=== PATIENT | female | born 1990 | race American Indian/Alaskan Native ===

== ENCOUNTER 2017-03-05 14:23 | Emergency (ER) | payer OTHER ==
[2017-03-05 14:37] VITALS: BP 151/93
[2017-03-05] MEDS ORDERED: ULTRAM PO ONE (15:08)
--- NOTE | 2017-03-05 16:12 | Cat Scan Report ---
FINAL REPORT EXAM: CT HEAD/BRAIN WO CON HISTORY: head injury TECHNIQUE: CT examination of the head without IV contrast PRIORS: None. FINDINGS: No acute air-fluid level visualized in the included air-filled sinuses. Bone windows demonstrate no acute fracture. The brain is without mass, mass effect, hemorrhage, or acute infarct. There is no extra-axial intracranial bleed, brain bleed, or midline shift. The ventricles and sulci are age-appropriate. IMPRESSION: No acute CVA, intracranial bleed, or brain mass
--- NOTE | 2017-03-05 16:25 | Emergency Department Report ---
ED General Adult HPI - General Chief complaint: Fall Stated complaint: FALL/BODY PAIN Time Seen by Provider: 03/05/17 15:01 Source: patient Mode of arrival: Ambulatory Limitations: No Limitations - History of Present Illness Initial comments: 26-year-old female currently on Coumadin for DVT presents to the ED complaining about headache after fall. She says she slipped and fell backwards, hitting her headache as an object. Denies LOC, nausea vomiting, tinnitus, abnormal behavior, abnormal memory. States that she's been having a pressure-like headache since the fall. Denies taking medication. She has minor aches and pains around her body but nothing major. Severity scale (0 -10): 9 - Related Data Previous Rx's Medication Instructions Recorded Last Taken Type Amoxicillin [Trimox CAP] 500 mg PO TID #21 capsule 09/26/14 Unknown Rx Ranitidine HCl [Zantac] 150 mg PO BID #30 tablet 09/26/14 Unknown Rx diphenhydrAMINE [Benadryl] 50 mg PO Q8HR PRN #30 capsule 09/26/14 Unknown Rx traMADol [Ultram 50 MG tab] 50 mg PO Q6HR PRN #10 tablet 03/05/17 Unknown Rx Allergies Allergy/AdvReac Type Severity Reaction Status Date / Time No Known Allergies Allergy Unverified 09/26/14 15:09 ED Review of Systems ROS: Stated complaint: FALL/BODY PAIN Other details as noted in HPI Constitutional: denies: chills, fever Eyes: denies: eye pain, eye discharge, vision change ENT: denies: ear pain, throat pain Respiratory: denies: cough, shortness of breath, wheezing Cardiovascular: denies: chest pain, palpitations Endocrine: no symptoms reported Gastrointestinal: denies: abdominal pain, nausea, diarrhea Genitourinary: denies: urgency, dysuria, discharge Musculoskeletal: denies: back pain, joint swelling, arthralgia Skin: denies: rash, lesions Neurological: headache. denies: weakness, paresthesias Psychiatric: denies: anxiety, depression Hematological/Lymphatic: denies: easy bleeding, easy bruising ED Past Medical Hx - Past Medical History Previous Medical History?: Yes Additional medical history: DVT from delivery last year - Surgical History Past Surgical History?: Yes Additional Surgical History: [place] filter - Social History Smoking Status: Former Smoker Substance Use Type: Alcohol - Medications Home Medications: Home Medications Medication Instructions Recorded Confirmed Last Taken Type Amoxicillin [Trimox CAP] 500 mg PO TID #21 capsule 09/26/14 Unknown Rx Ranitidine HCl [Zantac] 150 mg PO BID #30 tablet 09/26/14 Unknown Rx diphenhydrAMINE [Benadryl] 50 mg PO Q8HR PRN #30 capsule 09/26/14 Unknown Rx traMADol [Ultram 50 MG tab] 50 mg PO Q6HR PRN #10 tablet 03/05/17 Unknown Rx ED Physical Exam - General Limitations: No Limitations General appearance: alert, in no apparent distress - Head Head exam: Present: atraumatic, normocephalic - Eye Eye exam: Present: normal appearance - ENT ENT exam: Present: mucous membranes moist - Neck Neck exam: Present: normal inspection - Respiratory Respiratory exam: Present: normal lung sounds bilaterally. Absent: respiratory distress - Cardiovascular Cardiovascular Exam: Present: regular rate, normal rhythm. Absent: systolic murmur, diastolic murmur, rubs, gallop - GI/Abdominal GI/Abdominal exam: Present: soft, normal bowel sounds - Extremities Exam Extremities exam: Present: normal inspection - Back Exam Back exam: Present: normal inspection - Neurological Exam Neurological exam: Present: alert, oriented X3, CN II-XII intact, normal gait. Absent: altered, motor sensory deficit - Psychiatric Psychiatric exam: Present: normal affect, normal mood - Skin Skin exam: Present: warm, dry, intact, normal color. Absent: rash ED Course Vital Signs 03/05/17 03/05/17 14:33 15:16 Temperature 97.8 F Pulse Rate 118 H Respiratory 16 16 Rate Blood Pressure 151/93 O2 Sat by Pulse 99 Oximetry ED Medical Decision Making - Lab Data Vital Signs 03/05/17 03/05/17 14:33 15:16 Temperature 97.8 F Pulse Rate 118 H Respiratory 16 16 Rate Blood Pressure 151/93 O2 Sat by Pulse 99 Oximetry Patient heart rate was rechecked by me to be at 98 bpm. - Medical Decision Making Patient states relief with tramadol in the ED. Patient CT head is negative for any acute findings. She is resting comfortably at this time with no acute distress. Patient vital signs stable and in no acute distress at this time. States that she drinks 2 coffees and 1 red bull a day which could explain why her heart rate was elevated in the beginning of her visit. Critical care attestation.: If time is entered above; I have spent that time in minutes in the direct care of this critically ill patient, excluding procedure time. ED Disposition Clinical Impression: Fall, Head injury, closed, without LOC, Tension headache Disposition: DC-01 TO HOME OR SELFCARE Is pt being admited?: No Does the pt Need Aspirin: No Condition: Good Instructions: Fall Prevention (ED) Prescriptions: traMADol [Ultram 50 MG tab] 50 mg PO Q6HR PRN #10 tablet PRN Reason: Pain Referrals: FRAN SHAW MD [Primary Care Provider] - 3-5 Days Forms: Work/School Release Form(ED) Time of Disposition: 16:27
== END 2017-03-05 16:32 | disposition home or self-care (01) ==
LOC: ED 14:23
DX: S09.90XA Unspecified injury of head, initial encounter (principal); G44.209 Tension-type headache, unspecified, not intractable; Z87.891 Personal history of nicotine dependence; W01.198A Fall on same level from slipping, tripping and stumbling with subsequent striking against other object, initial encounter; Y93.89 Activity, other specified; Y92.89 Other specified places as the place of occurrence of the external cause; Y99.8 Other external cause status
CPT/HCPCS: 70450

== ENCOUNTER 2017-08-07 19:12 | Emergency (ER) | payer OTHER ==
[2017-08-07 19:24] VITALS: BP 134/89
== END 2017-08-08 01:10 | disposition left against medical advice (07) ==
LOC: ED 19:12
DX: M79.1 Myalgia (principal); Z53.21 Procedure and treatment not carried out due to patient leaving prior to being seen by health care provider